=== PATIENT | male | born 1980 | race Caucasian/White ===

== ENCOUNTER 2019-07-23 01:25 | Emergency (ER) | payer BC, OTHER ==
[2019-07-23] MEDS ORDERED: Ketorolac Tromethamine 60 MG/2 ML VIAL ONE (02:01)
== END 2019-07-23 02:08 | disposition home or self-care (01) ==
LOC: ERS 01:25
DX: M54.5 Low back pain (principal); F17.220 Nicotine dependence, chewing tobacco, uncomplicated
CPT/HCPCS: 96372; 99283; J1885

== ENCOUNTER 2019-09-01 13:58 | Emergency (ER) | payer OTHER ==
[2019-09-01 14:21] LABS: #Eosinphils 0.4 thou/uL (0.0-0.7); #Lymphocytes 1.9 thou/uL (1.20-3.40); #Monocytes 0.6 thou/uL (0.11-0.59); #Neutrophils 4.3 thou/uL (1.40-6.50); %Basophils 0.6 % (0.0-1.0); %Eosinophils 5.2 % (0.0-10.0); %Lymphocytes 26.4 % (21.0-51.0); %Monocytes 8.1 % (0.0-10.0); %Neutrophils 59.7 % (42.0-75.0); Hemoglobin 14.2 g/dL (14.0-18.0); Mean Corpuscular HGB CONC 34.4 g/dL (32.0-36.0); Mean Corpuscular Hemoglobin 31.5 pg (27.0-31.0); Mean Corpuscular Volume 91.6 fL (78.0-98.0); Mean Platelet Volume 7.3 fL (7.4-10.4); Platelet Count 232 thou/uL (130-400); RBC Distribution Width 11.8 % (11.5-14.5); Red Blood Cell (RBC) Count 4.51 mill/uL (4.70-6.10); White Blood Cell (WBC) Count 7.2 thou/uL (4.8-10.8)
[2019-09-01 14:44] LABS: ALT (SGPT) 26 U/L (8-55); AST (SGOT) 24 U/L (5-34); Albumin 4.2 g/dL (3.5-5.0); Alkaline Phosphatase 88 U/L (40-110); Anion Gap 12 mmol/L (10-20); BUN (Urea Nitrogen) 11 mg/dL (8.9-20.6); Bilirubin, Total 0.4 mg/dL (0.2-1.2); Calc. Creatinine Clearance 0 mL/min (70-130); Calcium 9.2 mg/dL (7.8-10.44); Carbon Dioxide 27 mmol/L (22-29); Chloride 105 mmol/L (98-107); Estimated GFR-MDRD Greater than 90; Glucose 75 mg/dL (70-105); Lipase 31 U/L (8-78); Potassium 3.5 mmol/L (3.5-5.1); Protein, Total 7.2 g/dL (6.0-8.3); Sodium 140 mmol/L (136-145)
[2019-09-01 15:54] LABS: Bilirubin Negative (Negative); Blood, Urine Negative (Negative); Clarity Clear (Clear); Glucose, Urine (Dipstick) Normal (Negative); Leukocyte Negative Leu/uL (Negative); Nitrite Negative (Negative); Protein, Urine (Dipstick) Negative (Neg-Trace); Urobilinogen Normal mg/dL (Less than 2)
--- NOTE | 2019-09-01 16:32 | ULT ---
Sonogram right upper quadrant HISTORY: Right quadrant pain. FINDINGS: Gallbladder is incompletely distended. No stones visible. Common duct is 0.3 cm. Liver unre markable without focal mass or intrahepatic biliary dilatation. No free fluid. IMPRESSION: No abnormalities are demonstrated.
[2019-09-01] MEDS ORDERED: Morphine 4 MG/ML VIAL ONE (16:38)
[2019-09-01] MEDS ORDERED: Ondansetron PF 4 MG/2 ML Vial ONE (16:38)
--- NOTE | 2019-09-01 16:48 | CT ---
CT ABDOMEN NONCONTRAST CT PELVIS NONCONTRAST: (Urolithiasis protocol) DATE: 09/01/2019 HISTORY: 39-year-old male with right upper quadrant abdominal pain TECHNIQUE: IV injection of iodinated contrast media: None Oral contrast media: None FINDINGS: Other than for urolithiasis, the lack of IV and oral contrast limits the evaluation. Gallbladder: Contracted Liver: No contour abnormalities. Spleen: No splenomegaly. Pancreas: No contour abnormalities. Adrenals: No mass. Kidneys: No nephrolithiasis or overt hydronephrosis. Ureters: No calculi. Bladder: No calculi. Abdominal aorta: No aneurysm. Small bowel: No dilation. Colon: No adjacent fat stranding. Appendix: No dilation or adjacent fat stranding. Free air: None Free fluid: None IMPRESSION: 1. No acute findings. 2. No urolithiasis or obstructive uropathy.
[2019-09-01] MEDS ORDERED: Ketorolac Tromethamine 30 MG/ML VIAL ONE (16:53)
[2019-09-01] MEDS ORDERED: Dicyclomine 20 MG TAB ONE (17:08)
== END 2019-09-01 17:29 | disposition home or self-care (01) ==
LOC: ERS 13:58
DX: R10.11 Right upper quadrant pain (principal); F17.220 Nicotine dependence, chewing tobacco, uncomplicated
CPT/HCPCS: 36415; 74176; 76705; 80053; 81003; 83690; 85025; 96374; 96375; J1885; J2270; J2405

== ENCOUNTER 2020-06-20 08:59 | Outpatient (CLI) | payer OTHER ==
[2020-06-20] MEDS ORDERED: Iopamidol 300 61% 50 ML VIAL FS ONE (09:35)
[2020-06-20] MEDS ORDERED: Gadobenate Dimeglumine 529 MG/1 ML (20ML VIAL) ONE (09:35)
[2020-06-20] MEDS ORDERED: Lidocaine 1% PF 10 ML AMP ONE (09:35)
[2020-06-20] MEDS ORDERED: EPINEPHrine 1 MG/ML AMP ONE (09:35)
--- NOTE | 2020-06-20 10:59 | RAD ---
ARTHROGRAM LEFT SHOULDER: DATE: 06/20/2020 HISTORY: 39-year-old male with ICD-10: "M 96.89, failure of rotator cuff repair" TECHNIQUE: Signed informed consent obtained. Anterior skin of shoulder prepared and draped in usual sterile fash ion. 25-gauge needle used to apply buffered lidocaine. Under brief, intermittent fluoroscopy, a 22-gauge spinal needle was advanced into the intracapsular space of the glenohumeral joint. A total o f10 mL of normal saline solution containing MultiHance gadolinium-based contrast agent, Isovue-300 iodinated contrast agent, lidocaine, and epinephrine, was injected. Needle was removed. Patient taiwo ated the procedure well. No complications. FINDINGS: Good contrast opacification of subcapsular spaces of glenohumeral joint. No immediate extravasation i nto subacromial-subdeltoid bursa. [employer] radiograph demonstrates mild to moderate DJD at AC joint. No high-grade DJD at glenohumeral eugenie nt. No fracture or subluxation. IMPRESSION: 1.) Successful left shoulder arthrogram. 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 3) see separate report of subsequent MRI arthrogram of shoulder.
--- NOTE | 2020-06-20 11:18 | MRI ---
EXAM: MR arthrogram left shoulder with intra-articular contrast PROVIDED CLINICAL HISTORY: Pain COMPARISON: None FINDINGS: Multiple foci of susceptibility artifact are seen about the glenohumeral joint. There is a focal area of increased signal intensity on both T1 and fluid sensitive sequences involvin g the undersurface fibers of the distal anterior infraspinatus tendon near the footplate. This is immediately adjacent to a focus of susceptibility artifact and could be artifactual in nature, versus a small partial-thickness undersurface tear. The components of the rotator cuff appear otherwise intact. The long head biceps tendon appears intac t and normally located. There is a truncated and irregular appearance to the posterior-superior glenoid labrum with adjacent susceptibility artifact. There is no evidence for displaced labral tear. The middle glenohumeral ligament appears thickened and irregular. No focal articular cartilage defect is apparent. Mild acromioclavicular joint osteoarthrosis without significant mass effect upon the subjacent supras pinatus. No focal concerning regional marrow or muscular signal abnormality apparent. IMPRESSION: 1. Possible small partial-thickness undersurface tear involving the distal infraspinatus tendon at th e footplate, versus susceptibility artifact. 2. Presumed postoperative changes involving the posterior superior labrum.
== END 2020-06-20 09:00 | disposition home or self-care (01) ==
LOC: RAD 08:59
PROVIDERS: ATTEND Orthopaedic Surgery
DX: M96.89 Other intraoperative and postprocedural complications and disorders of the musculoskeletal system (principal); M19.012 Primary osteoarthritis, left shoulder; Z98.890 Other specified postprocedural states
CPT/HCPCS: 23350; A9577; J0171; J2001; Q9967

== ENCOUNTER 2021-07-11 20:35 | Emergency (ER) | payer OTHER | END 2021-07-11 21:48 | disposition home or self-care (01) | LOC: ERS 20:35 | DX: R13.10 Dysphagia, unspecified (principal); F17.210 Nicotine dependence, cigarettes, uncomplicated | CPT/HCPCS: 99283 ==